=== PATIENT | female | born 1995 | race Caucasian/White ===

== ENCOUNTER 2024-11-26 05:51 | Emergency (ER) | payer BC ==
[~2024-11-26] VITALS: Ht 170.2 cm; Wt 63.5 kg
[2024-11-26] MEDS ORDERED: IBUPROFEN 600 MG TABLET ONE (06:32)
[2024-11-26] MEDS: IBUPROFEN 600 MG TABLET PO ONE (06:36)
[2024-11-26 07:10] VITALS: BP 109/80; TEMP 98.1; O2SAT 98
== END 2024-11-26 07:10 | disposition home or self-care (01) ==
LOC: ER 06:01
DX: M79.671 Pain in right foot (principal)
CPT/HCPCS: 73630-TC